=== PATIENT | male | born 1995 | race Native Hawaiian/Other Pacific Islander ===

== ENCOUNTER 2022-09-09 19:39 | Emergency (ER) | payer OTHER ==
[~2022-09-09] VITALS: Ht 177.8 cm; Wt 129.3 kg
[2022-09-09 19:50] VITALS: BP 158/87
[2022-09-09 21:40] VITALS: TEMP 100
== END 2022-09-09 21:40 | disposition home or self-care (01) ==
LOC: ED 19:39
DX: U07.1 COVID-19 (principal)
CPT/HCPCS: 87502; 87651; 99283